=== PATIENT | female | born 1985 | race Two or more races ===

== ENCOUNTER 2019-10-10 22:29 | Emergency (ER) | payer OTHER ==
[2019-10-10] MEDS ORDERED: KETOROLAC TROMETHAMINE 60 MG/2 ML VIAL IVPUSH ONE (22:50)
[2019-10-10] MEDS ORDERED: SODIUM CHLORIDE 1,000 ML IV STA (22:50)
--- NOTE | 2019-10-10 22:50 | PDOC ---
Rapid Medical Evaluation Chief Complaint: Pain Time Seen by Provider: 10/10/19 22:48 Medical Evaluation: 10/10/19 22:48 I have performed a brief in-person evaluation of this patient. The patient presents with a chief complaint of: dx with L renal stone (near bladder per pt) x 1 week at [facility] and here w/ ongoing pain. Seen Sunday and told stone should pass per pt. +nausea, no vomiting, f/c. No surgeries in past Pertinent physical exam findings:writhing in pain in triage I have ordered the following:labs/meds/CT The patient will proceed to the ED for further evaluation. Discharge Disposition - Diagnosis Renal colic on left side - Referrals - Patient Instructions - Post Discharge Activity
[2019-10-10 22:53] VITALS: BMI 23.0
[2019-10-10] MEDS ORDERED: KETOROLAC TROMETHAMINE 30 MG/1 ML VIAL IVPUSH ONE (22:54)
[2019-10-10] MEDS ORDERED: KETOROLAC TROMETHAMINE 30 MG/1 ML VIAL ONE (23:09)
[2019-10-10] MEDS ORDERED: morphine CARPU-JECT 4 MG/1 ML DISP.SYRIN IVPUSH ONE (23:11)
[2019-10-10] MEDS ORDERED: ONDANSETRON 4 MG/2 ML VIAL IVPUSH ONE (23:11)
[2019-10-10] MEDS ORDERED: morphine SULFATE 4 MG/ML VIAL ONE (23:14)
--- NOTE | 2019-10-10 23:14 | PDOC ---
History of Present Illness - General Chief Complaint: Pain Stated Complaint: ABDOMINAL PAIN Time Seen by Provider: 10/10/19 22:48 History Source: Patient Exam Limitations: No Limitations - History of Present Illness Initial Comments: 10/10/19 23:12 33-year-old female history of kidney stones here today complaining of persistent pain for 1 week. Patient states she was seen in the ED at [facility] 1 week ago was told she had a small left-sided ureteral stone which was near the bladder it was 2 mm in size. Since that time she has been having persistent pain she did take Motrin 800 mg at home with no relief describes nausea but no vomiting no fevers chills no dysuria no other current complaints. Patient states she is unable to tolerate the pain at home which is why she is here in the ED Past History - Medical History Allergies/Adverse Reactions: Allergies Allergy/AdvReac Type Severity Reaction Status Date / Time No Known Allergies Allergy Verified 10/10/19 22:50 Home Medications: Ambulatory Orders Oxycodone HCl/Acetaminophen [Percocet 5-325 mg Tablet] 1 tab PO Q6H PRN #15 tablet MDD 4 10/11/19 Tamsulosin HCl [Flomax] 0.4 mg PO DAILY 10 Days #10 cap.er.24h 10/11/19 COPD: No Kidney Stones: Yes - Psycho-Social/Smoking History Smoking History: Never smoked - Substance Abuse Hx (Audit-C & DAST Scrn) How often the patient has a drink containing alcohol: Never Score: In Men: 4 or > Positive; In Women: 3 or > Positive: 0 Screen Result (Pos requires Nsg. Audit-10AR): Negative Review of Systems - Review of Systems Constitutional: No: Chills, Fever HEENTM: No: Eye Pain Respiratory: No: Cough, Orthopnea, Shortness of Breath Cardiac (ROS): No: Chest Pain, Edema ABD/GI: Yes: Nausea. No: Vomiting : No: Burning, Dysuria, Discharge Integumentary: No: Bruising, Change in Color Neurological: No: Headache, Numbness, Paresthesia All Other Systems: Reviewed and Negative *Physical Exam - Vital Signs Last Vital Signs Temp Pulse Resp BP Pulse Ox 98.3 F 66 18 126/74 99 10/10/19 22:47 10/10/19 22:47 10/10/19 22:47 10/10/19 22:47 10/10/19 22:47 - Physical Exam 10/10/19 23:13 Awake alert no acute distress lungs are clear bilaterally heart is regular no murmurs rubs or gallops abdomen is soft and nontender there is mild left CVA tenderness extremities are warm well perfused skin is warm and dry patient is awake alert and oriented x3 ED Treatment Course - LABORATORY CBC & Chemistry Diagram: 10/10/19 23:16 10/10/19 23:16 - Medications Given in the ED: ED Medications Discontinued Medications Generic Name Dose Route Start Last Admin Trade Name Freq PRN Reason Stop Dose Admin Ketorolac Tromethamine 60 mg 10/10/19 22:50 10/10/19 23:08 Toradol Injection - IVPUSH 10/10/19 22:51 Not Given ONCE ONE Medical Decision Making - Medical Decision Making 10/10/19 23:13 33-year-old female history of renal colic here today with persistent renal colic pain for 1 week. Pain is severe was given Toradol in triage and started on IV fluids CAT scan was ordered for progression patient denies any vomiting we will treat her pain at this point with additional morphine and Zofran for her nausea UA and labs are pending 10/11/19 02:[address] shows a small 3 mm UVJ stone with mild left hydro-patient is feeling better would like to go home we will give her prescription for Percocet as her pain was not relieved with Motrin and a referral for urology in addition she will be given a prescription for Flomax patient did offer admission for pain control she would like to go home with pain medication Discharge - Discharge Information Problems reviewed: Yes Clinical Impression/Diagnosis: Renal colic on left side - Admission No - Additional Discharge Information Prescriptions: Oxycodone HCl/Acetaminophen [Percocet 5-325 mg Tablet] 1 tab PO Q6H PRN #15 tablet MDD 4 PRN Reason: Pain - Follow up/Referral Referrals: Sera Hall MD [Primary Care Provider] - Kevin Mas MD [Staff Physician] - - Patient Discharge Instructions Patient Printed Discharge Instructions: Kidney Stones -- Adult Additional Instructions: Your CAT scan shows a 3 mm kidney stone right at the junction of the ureter and the bladder. For this you can take Motrin 600 mg every 8 hours as needed for pain. If your pain is not relieved by Motrin you can also take Percocet 1 tablet every 6 hours as needed understand this medication is narcotic is vinicius ctive only take it for absolute pain not relieved by Motrin. You should also take Flomax 0.4 mg daily you can take at night before going to bed to help pass the stone follow-up with Dr. Koroma urologist please call to schedule a follow-up appointment return for any fevers chills inability to urinate or any concerns - Post Discharge Activity
[2019-10-10 23:30] LABS: BASO % 0.2 % (0-2.0); EOS % 1.3 % (0-4.5); HEMATOCRIT 36.8 % (32.4-45.2); MCH 27.7 pg (25.7-33.7); MCHC 32.7 g/dl (32.0-36.0); MEAN CELL VOLUME 84.8 fl (80-96); MEAN PLT VOLUME 8.3 fl (7.5-11.1); MONO % 6.2 % (3.8-10.2); NEUT % 79.3 % (42.8-82.8); PLATELET COUNT 239 K/MM3 (134-434); RBC 4.34 M/mm3 (3.60-5.2); RDW 12.8 % (11.6-15.6); WHITE BLOOD COUNT 11.6 K/mm3 (4.0-10.0)
[2019-10-10 23:36] LABS: HCG,QUALITATIVE URINE Negative
[2019-10-10 23:37] LABS: EPI CELLS 7 /uL (0-25.1); HYALINE CASTS 0 /uL (0-3.1); PH,URINE 7.5 (5.0-8.0); URINE APPEARANCE CLEAR; URINE BACTERIA 50 /uL (0-1359); URINE BILIRUBIN NEGATIVE (NEGATIVE); URINE COLOR YELLOW; URINE GLUCOSE (UA) NEGATIVE (NEGATIVE); URINE KETONE NEGATIVE (NEGATIVE); URINE LEUK ESTERASE NEGATIVE (NEGATIVE); URINE NITRITE NEGATIVE (NEGATIVE); URINE PROTEIN NEGATIVE (NEGATIVE); URINE RBC 15 /uL (0-23.9); URINE UROBILINOGEN 0.2 mg/dL (0.2-1.0); URINE WBC 1 /uL (0-25.8)
[2019-10-10 23:55] LABS: BILIRUBIN,TOTAL 0.4 mg/dL (0.2-1); BLOOD UREA NITROGEN 13.2 mg/dL (7-18); CALCIUM 9.1 mg/dL (8.5-10.1); POTASSIUM 3.5 mmol/L (3.5-5.1); TOT PROT 7.6 g/dl (6.4-8.2)
[2019-10-11 02:48] VITALS: BP 132/76; PULSE 68; TEMP 98
== END 2019-10-11 03:03 | disposition home or self-care (01) ==
LOC: JER 22:29
PROC: 3E033NZ Introduction of Analgesics, Hypnotics, Sedatives into Peripheral Vein, Percutaneous Approach (ICD-10-PCS; principal; 2019-10-10)
PROC: 3E033GC Introduction of Other Therapeutic Substance into Peripheral Vein, Percutaneous Approach (ICD-10-PCS; 2019-10-10)
PROC: 3E0337Z Introduction of Electrolytic and Water Balance Substance into Peripheral Vein, Percutaneous Approach (ICD-10-PCS; 2019-10-10)
DX: N23 Unspecified renal colic (principal)
CPT/HCPCS: 36415; 74176-TC; 80053; 81003; 84703; 85025; 99284-25

== ENCOUNTER 2020-06-18 07:20 | Inpatient (IN) | payer OTHER ==
[2020-06-18] MEDS ORDERED: DEXTROSE 5%-LACTATED RINGERS 1,000 ML IV SCH (08:30)
[2020-06-18 08:56] LABS: BASO % 0.4 % (0-2.0); EOS % 0.6 % (0-4.5); HEMATOCRIT 36.3 % (32.4-45.2); HEMOGLOBIN 12.6 GM/dL (10.7-15.3); LYMPH % 19.2 % (8-40); MCH 29.2 pg (25.7-33.7); MCHC 34.6 g/dl (32.0-36.0); MEAN CELL VOLUME 84.4 fl (80-96); MEAN PLT VOLUME 9.1 fl (7.5-11.1); MONO % 4.7 % (3.8-10.2); NEUT % 75.1 % (42.8-82.8); PLATELET COUNT 202 K/MM3 (134-434); RBC 4.31 M/mm3 (3.60-5.2); RDW 14.1 % (11.6-15.6); WHITE BLOOD COUNT 7.8 K/mm3 (4.0-10.0)
[2020-06-18 08:59] VITALS: BMI 33.3
[2020-06-18 09:01] LABS: INR 1.01 (0.83-1.09); PROTHROMBIN TIME (PATIENT) 12.2 SEC (9.7-13.0)
[2020-06-18 09:11] LABS: CALCIUM 9.3 mg/dL (8.5-10.1)
[2020-06-18 09:12] LABS: BLOOD UREA NITROGEN 8.3 mg/dL (7-18)
[2020-06-18 09:15] LABS: CREATININE 0.5 mg/dL (0.55-1.3)
[2020-06-18] MEDS ORDERED: OXYTOCIN 30 UNITS in 0.9% NS 30 UNIT/500 ML INFUS.BAG IVPB ONE (10:23)
[2020-06-18] MEDS ORDERED: OXYTOCIN 30 UNITS in 0.9% NS 30 UNIT/500 ML INFUS.BAG IVPB SCH (10:30)
[2020-06-18] MEDS ORDERED: ACETAMINOPHEN 325 MG TABLET (FP) ONE (14:00)
[2020-06-18] MEDS ORDERED: ACETAMINOPHEN 325 MG TABLET (FP) PO ONE (14:00)
[2020-06-18] MEDS ORDERED: BUTORPHANOL TARTRATE 1 MG/ML VIAL IVPUSH ONE (14:31)
[2020-06-18] MEDS ORDERED: PROMETHAZINE HCL 25 MG/1 ML VIAL IVPUSH ONE (14:33)
[2020-06-18] MEDS ORDERED: PROMETHAZINE HCL 25 MG/1 ML VIAL ONE (14:36)
[2020-06-18] MEDS ORDERED: BUTORPHANOL TARTRATE 2 MG/ML VIAL ONE (14:36)
[2020-06-18 15:36] LABS: RETICULOCYTES 2.08 % (0.5-1.5)
[2020-06-18 15:53] LABS: URIC ACID 3.9 mg/dL (2.6-7.2)
[2020-06-18] MEDS ORDERED: OXYTOCIN 20 UNITS in 0.9% NS 20 UNIT/1,000 ML INFUS.BAG IV ONE (17:04)
[2020-06-18] MEDS ORDERED: METHYLERGONOVINE MALEATE 0.2 MG/1 ML AMP IM PRN (17:22)
[2020-06-18] MEDS ORDERED: ACETAMINOPHEN 325 MG TABLET (FP) PO PRN (17:22)
[2020-06-18] MEDS ORDERED: IBUPROFEN 600 MG TABLET (FP) PO PRN (17:22)
[2020-06-18] MEDS ORDERED: BISACODYL 10 MG SUPP.RECT RC PRN (17:22)
[2020-06-18] MEDS ORDERED: BENZOCAINE 20% 57 GM BOTTLE TP PRN (17:22)
[2020-06-18] MEDS ORDERED: WITCH HAZEL 50% (TUCKS) 40 PAD/JAR PAD TP PRN (17:22)
[2020-06-18] MEDS ORDERED: BENZOCAINE 28 GM HEMORRHOIDAL OINTMENT TP PRN (17:22)
[2020-06-18] MEDS ORDERED: OXYTOCIN 20 UNITS in 0.9% NS 20 UNIT/1,000 ML INFUS.BAG IV SCH (17:30)
[2020-06-18 18:52] LABS: CORD BASE EXCESS -6.1 mmol/L (0-2); CORD HCO3 26.1 mmHg (20-29); CORD PCO2 51.9 mmHg (30-78); CORD PCO2 73.4 mmHg (30-78); CORD pH 7.15 (7.14-7.44); CORD pH 7.319 (7.14-7.44)
[2020-06-19] MEDS: FERROUS SO4 325 MG TABLET (FP) PO SCH ×2 (09:29→17:33)
[2020-06-19] MEDS: PRENATAL VITAMINS W/ FOLIC ACID TABLET (FP) PO SCH (09:29)
[2020-06-19 09:54] LABS: BASO % 0.2 % (0-2.0); EOS % 0.3 % (0-4.5); HEMATOCRIT 36.8 % (32.4-45.2); HEMOGLOBIN 12.5 GM/dL (10.7-15.3); LYMPH % 14.6 % (8-40); MCH 28.9 pg (25.7-33.7); MEAN PLT VOLUME 9.1 fl (7.5-11.1); MONO % 3.8 % (3.8-10.2); NEUT % 81.1 % (42.8-82.8); PLATELET COUNT 198 K/MM3 (134-434); RBC 4.32 M/mm3 (3.60-5.2); RDW 13.7 % (11.6-15.6); WHITE BLOOD COUNT 11.6 K/mm3 (4.0-10.0)
[2020-06-19] MEDS ORDERED: SENNOSIDES/DOCUSATE COMBO (SENNA PLUS) TABLET (UD) PO PRN (22:00)
[2020-06-20 08:33] VITALS: BP 127/61; PULSE 82; TEMP 97.8
[2020-06-20] MEDS: PRENATAL VITAMINS W/ FOLIC ACID TABLET (FP) PO SCH (09:12)
[2020-06-20] MEDS: FERROUS SO4 325 MG TABLET (FP) PO SCH (09:12)
== END 2020-06-20 15:40 | disposition home or self-care (01) | DRG 560 ==
LOC: JLDR 07:20 → J3W 20:00
PROVIDERS: ADMIT Family Medicine; ATTEND Family Medicine
PROC: 10E0XZZ Delivery of Products of Conception, External Approach (ICD-10-PCS; principal; 2020-06-18)
PROC: 10907ZC Drainage of Amniotic Fluid, Therapeutic from Products of Conception, Via Natural or Artificial Opening (ICD-10-PCS; 2020-06-18)
PROC: 3E033VJ Introduction of Other Hormone into Peripheral Vein, Percutaneous Approach (ICD-10-PCS; 2020-06-18)
DX: O80 Encounter for full-term uncomplicated delivery (principal); O24.420 Gestational diabetes mellitus in childbirth, diet controlled; O69.81X0 Labor and delivery complicated by cord around neck, without compression, not applicable or unspecified; Z3A.39 39 weeks gestation of pregnancy; Z37.0 Single live birth
CPT/HCPCS: 36415; 36600; 59409; 80048; 82803; 82977; 83010; 84450; 84460; 84550; 85025; 85032; 85045; 85610; 85730; 86780; 86850; 86900; 86901; C9803; U0003; U0005

== ENCOUNTER 2022-04-12 17:15 | Emergency (ER) | payer OTHER ==
[2022-04-12 17:42] VITALS: RESP 18; TEMP 98.1; BMI 27.9
[2022-04-12 20:48] VITALS: BP 117/68; PULSE 86
== END 2022-04-12 21:07 | disposition home or self-care (01) ==
LOC: JER 17:15
DX: O26.893 Other specified pregnancy related conditions, third trimester (principal); M71.22 Synovial cyst of popliteal space [Baker], left knee; M25.562 Pain in left knee; Z3A.27 27 weeks gestation of pregnancy
CPT/HCPCS: 73562-TC-LT-FY; 93971-TC; 99284-25

== ENCOUNTER 2022-04-28 10:00 | Inpatient (IN) | payer OTHER ==
[2022-04-28] MEDS: LACTATED RINGERS SOLUTION 1,000 ML IV SCH ×3 (10:10→14:40)
[2022-04-28] MEDS ORDERED: ACETAMINOPHEN 1000 MG/100 ML BAG IVPB ONE ×2 (11:04→16:58)
[2022-04-28 11:05] LABS: BASO % 0.2 % (0-2.0); EOS % 0.5 % (0-4.5); HEMATOCRIT 32.3 % (32.4-45.2); HEMOGLOBIN 11.2 GM/dL (10.7-15.3); MCH 29.7 pg (25.7-33.7); MCHC 34.8 g/dl (32.0-36.0); MEAN CELL VOLUME 85.4 fl (80-96); MEAN PLT VOLUME 7.5 fl (7.5-11.1); MONO % 5.1 % (3.8-10.2); NEUT % 88.2 % (42.8-82.8); PLATELET COUNT 167 10^3/uL (134-434); RBC 3.78 M/mm3 (3.60-5.2); RDW 14.1 % (11.6-15.6); WHITE BLOOD COUNT 14.4 K/mm3 (4.0-10.0)
[2022-04-28 11:08] LABS: EPI CELLS 4 /uL (0-25.1); HYALINE CASTS 0 /uL (0-3.1); PH,URINE 6.5 (5.0-8.0); URINE APPEARANCE CLEAR; URINE BACTERIA 36 /uL (0-1359); URINE BILIRUBIN NEGATIVE (NEGATIVE); URINE COLOR YELLOW; URINE GLUCOSE (UA) NEGATIVE (NEGATIVE); URINE KETONE NEGATIVE (NEGATIVE); URINE LEUK ESTERASE NEGATIVE (NEGATIVE); URINE NITRITE NEGATIVE (NEGATIVE); URINE PROTEIN NEGATIVE (NEGATIVE); URINE RBC 100 /uL (0-23.9); URINE UROBILINOGEN 0.2 mg/dL (0.2-1.0); URINE WBC 4 /uL (0-25.8)
[2022-04-28 11:11] LABS: INR 1.12 (0.83-1.09)
[2022-04-28 11:14] LABS: ACTIVATED PTT 28.4 SECONDS (25.2-36.5)
[2022-04-28 11:29] LABS: BLOOD UREA NITROGEN 5.9 mg/dL (7-18); CALCIUM 8.5 mg/dL (8.5-10.1)
[2022-04-28 11:33] LABS: CREATININE 0.5 mg/dL (0.55-1.3)
[2022-04-28] MEDS: CEFTRIAXONE 1 GM in DEXTROSE 5%-WATER - 50 ML IVPB SCH (12:40)
[2022-04-28] MEDS ORDERED: BETAMET ACET/BETAMET NA PH 30 MG/5 ML VIAL IM ONE (12:45)
[2022-04-28] MEDS ORDERED: BETAMET ACET/BETAMET NA PH 30 MG/5 ML VIAL ONE (12:55)
[2022-04-28 15:31] VITALS: BMI 29.2
[2022-04-28 17:23] VITALS: RESP 18
[2022-04-29] MEDS: ACETAMINOPHEN 325 MG TABLET (FP) PO PRN (03:51)
[2022-04-29] MEDS: CEFTRIAXONE 1 GM in DEXTROSE 5%-WATER - 50 ML IVPB SCH (09:12)
[2022-04-29] MEDS ORDERED: BETAMET ACET/BETAMET NA PH 30 MG/5 ML VIAL IM ONE (13:00)
[2022-04-29] MEDS: guaiFENesin 200 MG/10 ML 10 ML UNIT-DOSE CUPS PO PRN (18:07)
[2022-04-30] MEDS: guaiFENesin 200 MG/10 ML 10 ML UNIT-DOSE CUPS PO PRN ×2 (03:54→13:48)
[2022-04-30] MEDS: ACETAMINOPHEN 325 MG TABLET (FP) PO PRN (03:54)
[2022-04-30 10:08] VITALS: BP 121/70; PULSE 98; TEMP 98.1
[2022-04-30] MEDS: CEFTRIAXONE 1 GM in DEXTROSE 5%-WATER - 50 ML IVPB SCH (10:20)
[2022-05-05 17:07] LABS: CA OXALATE MONOHYDR. 100 % (.); SIZE 9x7 mm (.); WEIGHT 2 mg (.)
[2022-05-09 13:08] LABS: SIZE 9x3 mm (.); WEIGHT 4 mg (.)
== END 2022-04-30 16:05 | disposition home or self-care (01) | DRG 566 ==
LOC: JDEL 10:00 → JLDR 14:30 → J3W 20:19
PROVIDERS: ADMIT Obstetrics & Gynecology; ATTEND Obstetrics & Gynecology
DX: O44.03 Complete placenta previa NOS or without hemorrhage, third trimester (principal); O23.03 Infections of kidney in pregnancy, third trimester; Z3A.28 28 weeks gestation of pregnancy
CPT/HCPCS: 36415; 59025; 76775-TC; 80048; 81003; 82360; 85025; 85610; 85730; 86780; 86850; 86900; 86901; 87086; 88300-TC; 96372; C9803-CS; U0003; U0005

== ENCOUNTER 2022-06-20 12:40 | Inpatient (IN) | payer OTHER ==
[2022-06-20 14:41] LABS: HEMATOCRIT 36.4 % (32.4-45.2); HEMOGLOBIN 12.8 GM/dL (10.7-15.3); MCH 29.2 pg (25.7-33.7); MCHC 35.1 g/dl (32.0-36.0); MEAN CELL VOLUME 83.4 fl (80-96); MEAN PLT VOLUME 8.5 fl (7.5-11.1); PLATELET COUNT 197 10^3/uL (134-434); RBC 4.36 M/mm3 (3.60-5.2); RDW 13.9 % (11.6-15.6); WHITE BLOOD COUNT 6.4 K/mm3 (4.0-10.0)
[2022-06-20 14:53] LABS: INR 1.03 (0.83-1.09); PROTHROMBIN TIME (PATIENT) 11.9 SEC (9.7-13.0)
[2022-06-20 14:56] LABS: ACTIVATED PTT 29.5 SECONDS (25.2-36.5)
[2022-06-20 15:15] LABS: BLOOD UREA NITROGEN 8.6 mg/dL (7-18); CALCIUM 8.7 mg/dL (8.5-10.1)
[2022-06-20 15:16] LABS: ALBUMIN 2.6 g/dl (3.4-5.0)
[2022-06-20 15:19] LABS: CREATININE 0.5 mg/dL (0.55-1.3)
[2022-06-20 15:20] LABS: BILIRUBIN,TOTAL 0.7 mg/dL (0.2-1); TOT PROT 6.5 g/dl (6.4-8.2)
[2022-06-20 15:59] LABS: HIV INTERPRETATION NEGATIVE (NEGATIVE)
[2022-06-20] MEDS ORDERED: FENTANYL CITRATE/PF 50 MCG/ML VIAL ONE (16:56)
[2022-06-20 17:15] VITALS: BMI 30.5
[2022-06-20] MEDS: OXYTOCIN 20 UNITS in 0.9% NS 20 UNIT/1,000 ML INFUS.BAG IV SCH ×2 (17:27→19:28)
[2022-06-20] MEDS ORDERED: ELECTROLYTE-148 SOLN 500 ML IV SCH ×2 (17:45→18:00)
[2022-06-20] MEDS ORDERED: CITRIC ACID/SODIUM CITRATE 30 ML UNIT-DOSE CUP PO ONE (17:45)
[2022-06-20] MEDS ORDERED: METHYLERGONOVINE MALEATE 0.2 MG/1 ML AMP IM PRN (18:34)
[2022-06-20] MEDS ORDERED: OXYTOCIN 20 UNITS in 0.9% NS 20 UNIT/1,000 ML INFUS.BAG IV ONE (19:23)
[2022-06-20] MEDS: ACETAMINOPHEN 1000 MG/100 ML BAG IVPB SCH (19:29)
[2022-06-20] MEDS: IBUPROFEN 800 MG/8 ML IJ IVPB SCH (21:32)
[2022-06-21] MEDS: ACETAMINOPHEN 1000 MG/100 ML BAG IVPB SCH ×3 (02:08→12:26)
[2022-06-21] MEDS: IBUPROFEN 800 MG/8 ML IJ IVPB SCH ×3 (02:47→18:22)
[2022-06-21] MEDS ORDERED: oxyCODONE HCL 5 MG TABLET PO PRN ×2 (06:34)
[2022-06-21 08:11] LABS: BASO % 0.3 % (0-2.0); EOS % 0.7 % (0-4.5); HEMOGLOBIN 10.3 GM/dL (10.7-15.3); LYMPH % 17.6 % (8-40); MCH 29.6 pg (25.7-33.7); MCHC 35.4 g/dl (32.0-36.0); MEAN CELL VOLUME 83.5 fl (80-96); MEAN PLT VOLUME 8.2 fl (7.5-11.1); MONO % 5.5 % (3.8-10.2); NEUT % 75.9 % (42.8-82.8); PLATELET COUNT 148 10^3/uL (134-434); RBC 3.48 M/mm3 (3.60-5.2); RDW 13.8 % (11.6-15.6); WHITE BLOOD COUNT 8.2 K/mm3 (4.0-10.0)
[2022-06-21] MEDS: FERROUS SO4 325 MG TABLET (FP) PO SCH (08:31)
[2022-06-21] MEDS: SIMETHICONE 80 MG TAB.CHEW (FP) PO PRN (15:06)
[2022-06-21] MEDS ORDERED: BISACODYL 10 MG SUPP.RECT RC PRN (18:34)
[2022-06-21] MEDS ORDERED: ALBUTEROL SO4 HFA INHALER IH PRN (22:16)
[2022-06-22] MEDS: SIMETHICONE 80 MG TAB.CHEW (FP) PO PRN ×2 (01:47→17:27)
[2022-06-22] MEDS: IBUPROFEN 800 MG/8 ML IJ IVPB SCH (01:47)
[2022-06-22] MEDS: FERROUS SO4 325 MG TABLET (FP) PO SCH (09:35)
[2022-06-22] MEDS ORDERED: ACETAMINOPHEN 500 MG TABLET (FP) PO SCH (10:30)
[2022-06-22] MEDS ORDERED: IBUPROFEN 600 MG TABLET (FP) PO SCH (11:00)
[2022-06-22] MEDS ORDERED: ACETAMINOPHEN 500 MG TABLET (FP) PO PRN (14:06)
[2022-06-22] MEDS: IBUPROFEN 600 MG TABLET (FP) PO PRN ×2 (15:14→22:02)
[2022-06-22 23:40] VITALS: TEMP 98.2
[2022-06-23 08:39] VITALS: BP 121/81; PULSE 97; RESP 18
[2022-06-23 08:43] LABS: BASO % 0.3 % (0-2.0); HEMATOCRIT 26.7 % (32.4-45.2); HEMOGLOBIN 9.2 GM/dL (10.7-15.3); MCH 29.2 pg (25.7-33.7); MCHC 34.4 g/dl (32.0-36.0); MEAN CELL VOLUME 84.8 fl (80-96); MEAN PLT VOLUME 7.8 fl (7.5-11.1); MONO % 6.1 % (3.8-10.2); NEUT % 71.6 % (42.8-82.8); PLATELET COUNT 155 10^3/uL (134-434); RBC 3.16 M/mm3 (3.60-5.2); RDW 14.1 % (11.6-15.6); WHITE BLOOD COUNT 7.1 K/mm3 (4.0-10.0)
[2022-06-23] MEDS: SIMETHICONE 80 MG TAB.CHEW (FP) PO PRN (09:11)
[2022-06-23] MEDS: FERROUS SO4 325 MG TABLET (FP) PO SCH (09:11)
[2022-06-23] MEDS: IBUPROFEN 600 MG TABLET (FP) PO PRN (09:11)
== END 2022-06-23 15:25 | disposition home or self-care (01) | DRG 540 ==
LOC: JPSTI 12:40 → JLDR 16:15 → J3W 19:56
PROVIDERS: ADMIT Obstetrics & Gynecology; ATTEND Obstetrics & Gynecology
PROC: 10D00Z1 Extraction of Products of Conception, Low, Open Approach (ICD-10-PCS; principal; 2022-06-22)
DX: O44.13 Complete placenta previa with hemorrhage, third trimester (principal); O60.14X0 Preterm labor third trimester with preterm delivery third trimester, not applicable or unspecified; O99.893 Other specified diseases and conditions complicating puerperium; R05.8 Other specified cough; Z3A.36 36 weeks gestation of pregnancy; Z37.0 Single live birth
CPT/HCPCS: 36415; 36430; 71046-TC-FY; 80053; 85025; 85027; 85610; 85730; 86780; 86922; 87389; 87804; 88307-TC; 94010; C9803-CS; U0003; U0005